=== PATIENT | male | born 2000 | race Caucasian/White ===

== ENCOUNTER 2021-02-14 10:29 | Emergency (ER) | payer MEDICAID ==
[~2021-02-14] VITALS: Ht 177.8 cm; Wt 88.6 kg
[2021-02-14 11:10] VITALS: BP 114/70
--- NOTE | 2021-02-14 11:54 | NUR ---
PT AMBULATORY TO ROOM FROM TRIAGE.
[2021-02-14] MEDS ORDERED: KETOROLAC 30 MG/1 ML IM ONE (13:00)
== END 2021-02-14 13:36 | disposition home or self-care (01) ==
LOC: ED 13:00
DX: S62.336A Displaced fracture of neck of fifth metacarpal bone, right hand, initial encounter for closed fracture (principal); S62.324A Displaced fracture of shaft of fourth metacarpal bone, right hand, initial encounter for closed fracture; M25.531 Pain in right wrist; X58.XXXA Exposure to other specified factors, initial encounter; Y93.89 Activity, other specified; Y92.009 Unspecified place in unspecified non-institutional (private) residence as the place of occurrence of the external cause; Y99.8 Other external cause status
CPT/HCPCS: 29125; 99284